=== PATIENT | female | born 1965 | race Two or more races ===

== ENCOUNTER 2016-05-01 04:52 | Emergency (ER) | payer MEDICAID, OTHER ==
[~2016-05-01] VITALS: Ht 154.9 cm; Wt 68.0 kg
[2016-05-01 08:06] LABS: Basophils # (auto) 0 uL; Basophils % (auto) 0.3 % (0.0-2.0); Eosinophils # (auto) 0.1 uL; Eosinophils % (auto) 0.7 % (0.0-7.0); Hematocrit 42.1 % (36.0-46.0); Hemoglobin 13.4 g/dL (12.2-16.2); Lymphocytes % (auto) 19.7 % (10.0-50.0); Mean Corpuscular Hemoglobin 27.2 pg (28.0-32.0); Mean Corpuscular Hgb Conc. 31.9 g/dL (32.0-36.0); Mean Corpuscular Volume 85.4 fL (80.0-100.0); Mean Platelet Volume 8.6 fL (7.4-10.4); Monocytes # (auto) 0.6 uL; Monocytes % (auto) 5.4 % (0.0-12.0); Neutrophils # (auto) 7.7 uL; Neutrophils % (auto) 73.9 % (37.0-80.0); Platelet Count (auto) 324 10^3/uL (140-450); Red Cell Distribution Width 14.4 % (11.6-16.0); White Blood Cell 10.4 10^3/uL (4.4-10.8)
[2016-05-01] MEDS ORDERED: KETOROLAC TROMETH 30 MG/ML 1ML VIAL IV ONE (08:15)
[2016-05-01 08:26] LABS: Albumin 3.4 g/dL (3.4-5.0); BUN/Creatinine Ratio 22.8; Bilirubin, Total 0.6 mg/dL (0.2-1.0); Calcium 8.9 mg/dL (8.5-10.1); Potassium 3.9 mmol/L (3.5-5.1); Total Protein 7.1 g/dL (6.4-8.2)
[2016-05-01] MEDS ORDERED: ONDANSETRON HCL 4 MG/2 ML VIAL IV ONE (11:30)
[2016-05-01] MEDS ORDERED: MORPHINE SULF INJ 2 MG/ML SYRINGE 1ML IV ONE (11:30)
[2016-05-01 12:00] VITALS: BP 110/70
== END 2016-05-01 13:38 | disposition home or self-care (01) ==
LOC: EDBD 04:52 → ER 04:52
DX: R07.89 Other chest pain (principal); E11.9 Type 2 diabetes mellitus without complications; I10 Essential (primary) hypertension; R51 Headache
CPT/HCPCS: 36415; 70450; 71010; 72125; 80053; 84484; 85025; 85379; 93005; 94761; 96374; 96375; 99285; J1885; J2270; J2405

== ENCOUNTER 2022-05-25 10:11 | Inpatient (IN) | payer MEDICAID ==
[~2022-05-25] VITALS: Ht 154.9 cm; Wt 70.0 kg
[2022-05-25 10:47] LABS: Basophils # (auto) 0.1 10 ^3/uL (0-0.2); Basophils % (auto) 0.7 % (0.0-2.0); Eosinophils # (auto) 0.1 10 ^3/uL (0-0.8); Eosinophils % (auto) 1.3 % (0.0-7.0); Hematocrit 45.3 % (36.0-46.0); Lymphocytes % (auto) 17.2 % (10.0-50.0); Mean Corpuscular Hemoglobin 29.1 pg (28.0-32.0); Mean Corpuscular Hgb Conc. 33.1 g/dL (32.0-36.0); Mean Corpuscular Volume 87.9 fL (80.0-100.0); Monocytes # (auto) 0.7 10 ^3/uL (0-1.3); Monocytes % (auto) 5.7 % (0.0-12.0); Neutrophils # (auto) 8.9 10 ^3/uL (1.6-8.6); Neutrophils % (auto) 75.1 % (37.0-80.0); Red Blood Cells 5.15 10^6/uL (4.0-5.20); Red Cell Distribution Width 14.1 % (11.8-14.3); White Blood Cell 11.8 10^3/uL (4.4-10.8)
[2022-05-25 11:06] LABS: Albumin 3.5 g/dL (3.4-5.0); Calcium 9.1 mg/dL (8.5-10.1); Potassium 4.3 mmol/L (3.5-5.1)
[2022-05-25 11:10] LABS: Bilirubin, Total 0.6 mg/dL (0.2-1.0); Total Protein 7.5 g/dL (6.4-8.2)
[2022-05-25 12:36] LABS: Urine Bacteria NONE SEEN /hpf (None Seen); Urine Blood Negative /uL (Negative); Urine Mucus FEW (None Seen); Urine Specific Gravity 1.036 (1.001-1.035); Urine WBC 2 /hpf (0 - 5)
[2022-05-25] MEDS ORDERED: HYDROcodone-ACET 5/325MG TAB PO PRN (15:45)
[2022-05-25] MEDS ORDERED: NITROGLYCERIN 0.4 MG SL TAB SL PRN (15:45)
[2022-05-25] MEDS ORDERED: ONDANSETRON HCL 4 MG/2 ML VIAL IV PRN (15:45)
[2022-05-25] MEDS ORDERED: MORPHINE SULFATE INJ 2 MG/ml SYRG IV PRN ×2 (15:45)
[2022-05-25] MEDS: ACETAMINOPHEN 325 MG TAB PO PRN (20:34)
[2022-05-26 06:19] LABS: Albumin 3.2 g/dL (3.4-5.0); BUN/Creatinine Ratio 29.1; Bilirubin, Total 0.7 mg/dL (0.2-1.0); Potassium 4.7 mmol/L (3.5-5.1)
[2022-05-26 07:03] LABS: Basophils # (auto) 0 10 ^3/uL (0-0.2); Basophils % (auto) 0.4 % (0.0-2.0); Eosinophils # (auto) 0.2 10 ^3/uL (0-0.8); Eosinophils % (auto) 2.1 % (0.0-7.0); Hematocrit 42.4 % (36.0-46.0); Hemoglobin 14.3 g/dL (12.2-16.2); Lymphocytes % (auto) 27.2 % (10.0-50.0); Mean Corpuscular Hemoglobin 29.3 pg (28.0-32.0); Mean Corpuscular Hgb Conc. 33.7 g/dL (32.0-36.0); Mean Corpuscular Volume 86.9 fL (80.0-100.0); Monocytes # (auto) 0.9 10 ^3/uL (0-1.3); Monocytes % (auto) 8.7 % (0.0-12.0); Neutrophils # (auto) 6.7 10 ^3/uL (1.6-8.6); Neutrophils % (auto) 61.6 % (37.0-80.0); Red Blood Cells 4.88 10^6/uL (4.0-5.20); Red Cell Distribution Width 13.8 % (11.8-14.3); White Blood Cell 10.9 10^3/uL (4.4-10.8)
[2022-05-26] MEDS: ACETAMINOPHEN 325 MG TAB PO PRN ×2 (08:02→17:29)
[2022-05-26] MEDS: ENOXAPARIN SOD 40 MG/0.4 ML SYRINGE SC SCH (10:16)
[2022-05-27] MEDS: ACETAMINOPHEN 325 MG TAB PO PRN ×2 (04:09→14:15)
[2022-05-27 05:00] VITALS: BP 139/78
[2022-05-27 09:00] VITALS: BP 147/75
[2022-05-27] MEDS: ENOXAPARIN SOD 40 MG/0.4 ML SYRINGE SC SCH (09:09)
[2022-05-27] MEDS ORDERED: ADENOSINE 57 MG in GIVE UN-DILUTED 0 ML IV STA (10:30)
[2022-05-27 10:31] VITALS: BP 134/74
[2022-05-27 13:00] VITALS: BP 141/66
[2022-05-27 17:00] VITALS: BP 129/70
[2022-05-27 22:00] VITALS: BP 150/77
[2022-05-28] VITALS (11 sets, daily range): BP systolic 111–140; BP diastolic 65–89
[2022-05-28] MEDS: ENOXAPARIN SOD 40 MG/0.4 ML SYRINGE SC SCH (07:24)
[2022-05-28 08:19] LABS: INR 0.97 (0.9-1.15)
[2022-05-28] MEDS: ACETAMINOPHEN 325 MG TAB PO PRN (10:36)
[2022-05-28] MEDS ORDERED: LIDOCAINE 2%HCL (LOCAL ANESTH.) INJ 10ml MDV ONE (15:06)
[2022-05-28] MEDS ORDERED: IODIXANOL 320MG/ML 100ML BTL IV ONE (15:07)
[2022-05-28] MEDS ORDERED: HEPARIN SODIUM (PORCINE) 5000 UNITS/ML 1ML VIAL ONE (15:17)
[2022-05-28] MEDS ORDERED: ANGIOMAX 250 MG VIAL IV ONE (15:17)
[2022-05-28] MEDS ORDERED: VERAPAMIL 2.5MG/ML INJ 2ML VIAL IV ONE (15:17)
[2022-05-28] MEDS ORDERED: fentaNYL CITRATE 100 MCG/2 ML VL ONE (15:17)
[2022-05-28] MEDS ORDERED: SODIUM CHL 0.9% 0 ML ONE (15:18)
[2022-05-28] MEDS ORDERED: MIDAZOLAM HCL 2MG/2ML 2ml VIAL (1mg/ml) ONE (15:18)
[2022-05-28] MEDS ORDERED: HYDROcodone-ACET 5/325MG TAB PO PRN (22:00)
[2022-05-29 05:00] VITALS: BP 145/70
[2022-05-29] MEDS: ENOXAPARIN SOD 40 MG/0.4 ML SYRINGE SC SCH (07:56)
[2022-05-29 07:57] VITALS: BP 123/72
[2022-05-29 09:00] VITALS: BP 136/75
== END 2022-05-29 10:20 | disposition home or self-care (01) | DRG 191 ==
LOC: ER 10:11 → TELE 15:48 → TELE-WESTW 05-26 21:45
PROVIDERS: ADMIT Internal Medicine; ATTEND Internal Medicine
PROC: 4A023N7 Measurement of Cardiac Sampling and Pressure, Left Heart, Percutaneous Approach (ICD-10-PCS; principal; 2022-05-28)
PROC: B2111ZZ Fluoroscopy of Multiple Coronary Arteries using Low Osmolar Contrast (ICD-10-PCS; 2022-05-28)
DX: I25.110 Atherosclerotic heart disease of native coronary artery with unstable angina pectoris (principal); E11.9 Type 2 diabetes mellitus without complications; I10 Essential (primary) hypertension; E66.9 Obesity, unspecified; Z20.822 Contact with and (suspected) exposure to COVID-19; Z68.29 Body mass index [BMI] 29.0-29.9, adult
CPT/HCPCS: 36415; 71045; 78452; 80053; 81001; 84484; 85025; 85610; 87426; 93005; 93017; 93306; 93458; 99152; G0378; J0153; J2001; J2250; J2405; Q9967

== ENCOUNTER 2024-08-14 12:09 | Emergency (ER) | payer MEDICAID ==
[~2024-08-14] VITALS: Ht 154.9 cm; Wt 64.3 kg
--- NOTE | 2024-08-14 12:22 | ED.PDOC ---
History of Present Illness HPI Comments 58-year-old female presents to the ER with prior medical history of depression, diabetes, hypertension, CVA-mild; surgical history of cholecystectomy, and the chief complaint of back pain. Patient reports that she went to urgent care yesterday diagnosed with a UTI and was informed if she still has sharp back pain, dizziness, lightheadedness, to go to the ER. She reports on being lightheaded, dizzy, sharp back pain. Denies chills, fever, N/V/D, SOB, CP. No other associated symptoms, modifiers, recent injuries or sick contacts present at this time. Time Seen by MD: 12:20 Primary Care Provider: ABEBE Reviewed Notes: Nurses Notes, Medications, Allergies Allergies: Coded Allergies: Naproxen (Verified Allergy, Severe, 08/14/24) Home Meds Active Scripts Meclizine HCl (Meclizine 25) 25 Mg Tab, 25 MG PO BS for 5 Days, #5 TAB Prov:ANDREA RUBIO MD 08/14/24 Information Source: Patient Mode of Arrival: Ambulatory Severity: Moderate Timing: Hours Duration: Since onset, Hours Prehospital treatment: None Past Medical History PAST MEDICAL HISTORY: CVA (Mild), Depression, DM, HTN Surgical History: Cholecystectomy, DIRECTOR OF PHYSICAL THERAPY History: No Pertinent DIRECTOR OF PHYSICAL THERAPY History Family History Family History: Reviewed,noncontributory to illness, Unknown Social History Smoker: Non-Smoker Alcohol: Denies ETOH Use Drugs: Denies Drug Use Lives In: Home Constitutional: denies: chills, diaphoresis, fatigue, fever, malaise, sweats, weakness, others EENTM: denies: blurred vision, double vision, ear bleeding, ear discharge, ear drainage, ear pain, ear ringing, eye pain, eye redness, hearing loss, mouth pain, mouth swelling, nasal discharge, nose bleeding, nose congestion, nose pain, photophobia, tearing, throat pain, throat swelling, voice changes, others Respiratory: denies: cough, hemoptysis, orthopnea, SOB at rest, shortness of breath, SOB with excertion, stridor, wheezing, others Cardiovascular: denies: chest pain, dizzy spells, diaphoresis, Dyspnea on exertion, edema, irregular heart beat, left arm pain, lightheadedness, palpitations, PND, syncope, others Gastrointestinal: denies: abdomen distended, abdominal pain, blood streaked bowels, constipated, diarrhea, dysphagia, difficulty swallowing, hematemesis, melena, nausea, poor appetite, poor fluid intake, rectal bleeding, rectal pain, vomiting, others Genitourinary: denies: abnormal vagina bleeding, burning, dyspareunia, dysuria, flank pain, frequency, hematuria, incontinence, pain, , vagina discharge, urgency, others Neurological: reports: dizziness, others (Lightheadedness); denies: fainting, headache, left sided numbness, left sided weakness, numbness, paresthesia, pre- existing deficit, right sided numbness, right sided weakness, seizure, speech problems, tingling, tremors, weakness Musculoskeletal: reports: back pain; denies: gout, joint pain, joint swelling, muscle pain, muscle stiffness, neck pain, others Integumetry: denies: bruises, change in color, change in hair/nails, dryness, laceration, lesions, lumps, rash, wounds, others Allergic/Immunocompromised: denies: Difficulty Healing, Frequent Infections, Hives, Itching, others Hematologic/Lymphatic: denies: anemia, blood clots, easy bleeding, easy bruising, swollen glands, others Endocrine: denies: excessive hunger, excessive sweating, excessive thirst, excessive urination, flushing, intolerance to cold, intolerance to heat, unexplained weight gain, unexplained weight loss, others Psychiatric: denies: anxiety, bipolar disorder, depression, hopeless, panic disorder, schizophrenia, sleepless, suicidal, others All Other Systems: Reviewed and Negative Physical Exam General Appearance: Moderate Distress, Normal HEENT: Normal ENT Inspection, Pharynx Normal, TMs Normal Neck: Full Range of Motion, Non-Tender, Normal, Normal Inspection Respiratory: Chest Non-Tender, Lungs Clear, No Accessory Muscle Use, No Respiratory Distress, Normal Breath Sounds Cardiovascular: No Edema, No JVD, No Murmur, No Gallop, Normal Peripheral Pulses, Regular Rate/Rhythm Breast Exam: Deferred Gastrointestinal: No Organomegaly, Non Tender, No Pulsatile Mass, Normal Bowel Sounds, Soft Genitalia: Deferred Pelvic: Deferred Rectal: Deferred Extremities: No calf tenderness, Normal capillary refill, Normal inspection, Normal range of motion, Non-tender, No pedal edema Musculoskeletal : Apperance: Normal Neurologic: Alert, top cleaner II-XII nml as Tested, No Motor Deficits, Normal Affect, Normal Mood, No Sensory Deficits Cerebellar Function: Normal Reflexes: Normal Skin: Dry, Normal Color, Warm Peripheral Pulses: 3+ Radial (R), 3+ Radial (L) Lymphatic: No Adenopathy Was a procedure done? Was a procedure done?: No EKG EKG : Pulse Rate (adult): 103 Cardiac Rhythm: NSR Differential Dx Considerations may include: Autonomic disorder X-Ray, Labs, Meds, VS Vital Signs Date Time Temp Pulse Resp B/P (MAP) Pulse Ox O2 Delivery O2 Flow Rate FiO2 08/14/24 12:32 103 08/14/24 12:26 103 08/14/24 12:09 97.7 106 17 121/75 (90) 98 97.7 08/14/24 12:09 97.7 106 17 121/75 (90) 98 97.7 Lab Test 08/14/24 12:41 08/14/24 12:21 Range/Units Urine Color Pending Urine Clarity Pending Urine pH Pending Urine Specific [place] Pending Urine Protein Pending Urine Ketones Pending Urine Blood Pending Urine Nitrite Pending Urine Bilirubin Pending Urine Urobilinogen Pending Urine Leukocyte Esterase Pending Urine RBC Pending Urine Microscopic WBC Pending Urine Squamous Epithelial Cells Pending Urine Bacteria Pending Urine Glucose Pending Troponin I High Sensitivity 7 </=34 ng/L POC Glucose 276 H 70-106 mg/dl Patient alert. Vitals stable. No sign of any distress. Saturation pristine on room air. Clinical examination pristine. No leg swelling. No discoloration. Heart rate on clinical examination within normal limits. Respiratory rate within normal limits. Neurological examination pristine. CT of the head reviewed does show old changes no new changes. Possibly autonomic disorder. Was given prescription of meclizine. Explained to the patient. Was told to follow up with her primary care physician. Was told to come back if there is any problem. Time of 1ST Reevaluation: 12:50 Reevaluation 1ST: Improved Patient Education/Counseling: Diagnosis, Treatment, Prognosis Family Education/Counseling: No Family Present Departure 1 Departure Time of Disposition: 12:30 Impression: Primary Impression: Autonomic disorder Additional Impression: Hyperglycemia Disposition: 01 HOME / SELF CARE / HOMELESS Condition: Good e-Prescriptions Meclizine HCl (Meclizine 25) 25 Mg Tab 25 MG PO BS for 5 Days, #5 TAB Prov: ANDREA RUBIO MD 08/14/24 Discharged With: Self Critical Care Note Critical Care Time?: No Stability Stability form required: No Heart Score Heart Score: Heart Score Response (Comments) Value History Slightly Suspicious 0 EKG Normal 0 Age 45-64 1 Risk Factors 1 or 2 risk factors 1 Troponin N/A 0 Total 2 I personally scribed for ANDREA RUBIO MD ([email or web address]) on 08/14/24 at 12:22. Electronically submitted by Shady Dominguez ([email or web address]). ANDREA RUBIO MD August 14, 2024 12:22
[2024-08-14] MEDS ORDERED: MECL1TAB42 PO (12:31)
--- NOTE | 2024-08-14 13:14 | DVH ---
CT HEAD WITHOUT CONTRAST Indication: dizzy EXAM DATE: 08/14/2024 12:43 PM COMPARISON: None TECHNIQUE: CT of the head without intravenous contrast. RADIATION DOSE: CTDIvol: 51.09 mGy, DLP: 819.17 mGy*cm FINDINGS: There is no intracranial hemorrhage. There is no extra-axial fluid, mass, mass effect or midline shif t. The ventricles are midline and normal in size. Basilar cisterns are patent. There are mild periven tricular and subcortical white matter chronic microvascular ischemic changes. There are old bilatera l lacunar infarcts. The paranasal sinuses and mastoids are well-pneumatized. Imaged portion of the orbits are unremarkabl e. IMPRESSION: 1. No intracranial hemorrhage or mass effect. 2. Mild chronic microvascular ischemic changes. Old bilateral basal ganglia lacunar infarcts.
[2024-08-14 15:44] VITALS: BP 120/71; PULSE 104; RESP 20; TEMP 97.5; O2SAT 98
--- NOTE | 2024-08-15 07:25 | ECG ---
[facility] Test Date: 2024-08-14 Test Time: 12:26:26 Pat Name: LIUDMILA YE Department: ER Room: Gender: F [employer] Worker: TINY : 1965 Requested By: ANDREA RUBIO Order Number: [id number] Reading MD: Socrates Mtz Measurements Intervals [place] Rate: 103 P: 48 MO: 123 QRS: 38 QRSD: 80 T: 59 QT: 326 QTc: 427 Interpretive Statements Sinus tachycardia Baseline wander in lead(s) V4 Electronically Signed On 08-15-2024 12:16:27 PDT by Socrates Mtz Please click the below link to view image of tracing.
== END 2024-08-14 15:46 | disposition home or self-care (01) ==
LOC: ER 12:09
DX: G90.9 Disorder of the autonomic nervous system, unspecified (principal); E11.65 Type 2 diabetes mellitus with hyperglycemia; I10 Essential (primary) hypertension; F32.A Depression, unspecified; I67.82 Cerebral ischemia; Z90.49 Acquired absence of other specified parts of digestive tract; Z88.6 Allergy status to analgesic agent
CPT/HCPCS: 36415; 70450; 82947; 82962; 84484; 93005